=== PATIENT | male | born 1995 | race Caucasian/White ===

== ENCOUNTER 2018-03-24 09:34 | Emergency (ER) | payer OTHER ==
[~2018-03-24] VITALS: Ht 167.6 cm; Wt 63.5 kg
[2018-03-24] MEDS ORDERED: IBUPROFEN 800800 MG PO (10:30)
[2018-03-24] MEDS ORDERED: AQUAPHOR85 GM TOP (10:30)
[2018-03-24] MEDS ORDERED: KEFLEX500 M1 PO (10:30)
[2018-03-24 10:43] VITALS: BP 128/74
== END 2018-03-24 10:43 | disposition home or self-care (01) ==
LOC: M.ERS 09:34
DX: S51.811A Laceration without foreign body of right forearm, initial encounter (principal); W26.8XXA Contact with other sharp object(s), not elsewhere classified, initial encounter; Y93.89 Activity, other specified; Y92.89 Other specified places as the place of occurrence of the external cause; Y99.8 Other external cause status